=== PATIENT | female | born 1970 | race Caucasian/White ===

== ENCOUNTER 2020-03-29 07:41 | Outpatient (CLI) | payer OTHER, SELFPAY ==
--- NOTE | 2020-03-29 08:00 | MM_ITS ---
WS: [id number] BILATERAL DIGITAL SCREENING MAMMOGRAPHY WITH CAD CLINICAL INFORMATION: screening HISTORY: Screening mammogram. No current complaints. COMPARISON: TECHNIQUE: Bilateral CC and MLO views. FINDINGS: Scattered fibroglandular densities bilaterally. No suspicious focal mass, asymmetry, calcifications, or architectural distortion. No evidence of malignancy. MM/[id number] IMPRESSION: BI-RADS: 1-Negative FOLLOW UP: 1 Year Follow-up Recommend return to annual screening mammography.
== END 2020-03-29 07:42 | disposition home or self-care (01) ==
LOC: RADSHAW 07:43
PROVIDERS: PCP Electrodiagnostic Medicine; Visit Provider Nurse Practitioner Women's Health
DX: Z12.31 Encounter for screening mammogram for malignant neoplasm of breast (principal)
CPT/HCPCS: 77067

== ENCOUNTER 2021-04-04 07:59 | Outpatient (CLI) | payer OTHER, SELFPAY ==
--- NOTE | 2021-04-04 08:00 | MM_ITS ---
WS: [id number] Bilateral screening digital mammogram, 04/04/2021 Clinical Data: Z12.39 - Encounter for other screening for malignant neop... Comparison: 03/29/2020, 07/19/2015, 06/02/2013. Findings: The breast parenchymal pattern shows fat replacement. No spiculated masses or clustered calcification s are seen. There are no secondary signs of carcinoma. There are lymph nodes in both axilla. MM/[place] [id number] Impression: 1. Negative bilateral mammogram unchanged. 2. Recommend annual screening mammograms. BIRADS: 1-Negative FOLLOW UP: 1 Year Follow-up The CAD mechanical and auto body car checker was used.
== END 2021-04-04 08:00 | disposition home or self-care (01) ==
LOC: RADSHAW 08:01
PROVIDERS: PCP Electrodiagnostic Medicine; Visit Provider Nurse Practitioner Women's Health
DX: Z12.31 Encounter for screening mammogram for malignant neoplasm of breast (principal)
CPT/HCPCS: 77067

== ENCOUNTER → 2022-05-06 09:15 | Outpatient (BNVA) | payer OTHER, SELFPAY | PROVIDERS: Visit Provider Nurse Practitioner Women's Health | DX: Z01.419 Encounter for gynecological examination (general) (routine) without abnormal findings (principal); E28.2 Polycystic ovarian syndrome | CPT/HCPCS: 87624 ==

== ENCOUNTER 2022-05-15 09:04 | Outpatient (CLI) | payer OTHER, SELFPAY ==
--- NOTE | 2022-05-15 09:10 | MM_ITS ---
WS: [id number] SCREENING DIGITAL TOMOSYNTHESIS MAMMOGRAM WITH CAD HISTORY: Z12.39 - Encounter for other screening for malignant neoplasm... COMPARISON: 04/04/2021 and 03/29/2020 Bilateral CC and MLO with tomosynthesis views submitted. Synthetic mammography reviewed. Computer aid ed detection analyzed. Breast composition: There are scattered areas of fibroglandular density. No suspicious masses, microc alcifications or architectural distortion. MM/[place] [id number] IMPRESSION: BI-RADS: 1-Negative FOLLOW UP: 1 Year Follow-up
== END 2022-05-15 09:05 | disposition home or self-care (01) ==
LOC: RAD 09:06
PROVIDERS: Visit Provider Nurse Practitioner Women's Health
DX: Z12.31 Encounter for screening mammogram for malignant neoplasm of breast (principal)
CPT/HCPCS: 77063; 77067

== ENCOUNTER → 2022-07-24 12:15 | Outpatient (BNVA) | payer OTHER, SELFPAY | PROVIDERS: Visit Provider Nurse Practitioner Women's Health | DX: R87.615 Unsatisfactory cytologic smear of cervix (principal) | CPT/HCPCS: 87624 ==

== ENCOUNTER 2023-03-18 08:24 | Emergency (ER) | payer OTHER, SELFPAY ==
[2023-03-18 08:32] VITALS: BP 236/149; PULSE 104; RESP 18; TEMP 36.9; O2SAT 96; BMI 54.8
[2023-03-18 08:37] VITALS: BP 238/120
--- NOTE | 2023-03-18 08:42 | ECG_ITS ---
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 Measurements Intervals [place] Rate: 90 P: 34 TN: 191 QRS: 7 QRSD: 90 T: 69 QT: 369 QTc: 453 Interpretive Statements SINUS RHYTHM WITH OCCASIONAL VENTRICULAR PREMATURE COMPLEXES POSSIBLE LEFT ATRIAL ENLARGEMENT [-0.1mV P-WAVE IN V1/V2] ANTERIOR MYOCARDIAL INFARCTION , OF INDETERMINATE AGE [40+ ms Q WAVE AND/OR ST/T ABNORMALITY IN V3/V4] No previous ECG available for comparison Electronically Signed On 03-18-2023 11:00:26 CDT by Lisa Garcia M.D. [id number]
--- NOTE | 2023-03-18 08:42 | XR_ITS ---
WS: [id number] Exam: XR chest 1V portable [id number] Date/Time of Exam: 03/18/2023 8:42 AM Reason For Exam: dyspnea/cough No priors. Findings: The lungs are clear and fully expanded. Costophrenic angles are sharp. No infiltrates. Bronchovascula r relief appears normal. Cardiac silhouette is unremarkable. Bony elements are intact. XR/XR chest 1V portable [id number] IMPRESSION: Unremarkable chest radiograph.
[2023-03-18 09:02] LABS: Basophils # 0.1 10^3/uL (0.0-0.1); Basophils % 0.8 %; Eosinophils # 0.3 10^3/uL (0.0-0.8); Eosinophils % 3.4 %; Hematocrit 38.6 % (37.0-47.0); Hemoglobin 12.1 g/dL (11.5-15.3); Lymphocytes # 1.9 10^3/uL (0.8-4.8); Lymphocytes % 25.2 %; Mean Corpuscular HGB Conc 31.3 g/dL (30.0-36.0); Mean Corpuscular Hemoglobin 26.4 pg (28.0-34.0); Mean Corpuscular Volume 84.1 fl (81-99); Mean Platelet Volume 9.6 fL (7.4-10.4); Monocytes # 0.5 10^3/uL (0.2-0.9); Neutrophils # 4.69 10^3/uL (1.8-7.7); Neutrophils % 63.2 %; Nucleated Red Blood Cells % 0 %; Platelet Count 377 10^3/cmm (130-400); Red Blood Count 4.59 10^6/uL (4.1-5.3); Red Cell Distribution Width 15.3 % (12.1-15.1); White Blood Count 7.4 10^3/uL (4.0-10.0)
[2023-03-18] MEDS: metoprolol tartrate 25 mg Tablet PO (09:02)
[2023-03-18] MEDS: amlodipine 10 mg Tablet PO (09:02)
[2023-03-18] MEDS: labetalol 5 mg/mL SDV 20mL 10 MG IVP (09:04)
[2023-03-18] MEDS: hyDRALAzine 20 mg/mL INJ 1 mL IVP (09:04)
[2023-03-18 09:07] VITALS: BP 163/83; PULSE 72; O2SAT 98
--- NOTE | 2023-03-18 09:19 | W.ED.DIZZY ---
HPI - Dizziness General: Chief Complaint: Dizziness Stated Complaint: bp issues Time Seen by Provider: 03/18/23 08:28 Source: patient Mode of arrival: ambulatory History of Present Illness: HPI Narrative: 52-year-old female with a history of hypertension was recently seen and started on lisinopril 20 mg daily and clonidine 0.1 twice daily despite this her blood pressure continues to be elevated and was significantly elevated on arrival today at home she did several blood pressures well over 200 and did when she first arrived here verified by manual cuff she denies difficulty speech swallowing or vision gait or coordination. MD elicited complaint: dizziness Onset (ago): day(s) Severity: moderate Description: sense of movement Context: change in medication Exacerbating factors: nothing Relieving factors: nothing Associated symptoms: Denies chest pain, chills, malaise or nasal congestion Associated neuro symptoms: Deny confusion, difficulty speaking, dysphagia, diplopia, extremity weakness, facial numbness, facial weakness, gait changes, numbness in extremities or visual changes Review of Systems Const: Denies: fever(s), chills, body aches, change in appetite, fatigue or malaise ENMT: Denies: throat pain, ear or mastoid pain, nasal discharge or nasal congestion Card: Denies: chest pain, edema, dyspnea on exertion or orthopnea Resp: Denies: dyspnea, productive cough or non-productive cough GI: Denies: dysphagia : Denies: flank pain, difficulty voiding, dysuria, urinary frequency or urinary urgency Skin/Breast: Denies: rash or pruritus Neuro: Denies: numbness in extremities or confusion PFSH ED PFSH: Medical History No pertinent past medical history neghx: htn,dm,thyroid,dvt/pe PCP: Nolan Polycystic ovarian syndrome Surgical History H/O knee surgery (~09/2016) Performed by Dr. Pena at [facility] in [place], [place]. H/O removal of cyst Dr. Contreras---left shoulder Family History Mother Family history of thyroid problem Hypertension Father Heart disease Denies family history of Colon cancer Ovarian cancer Diabetes Hyperlipidemia Breast cancer Uterine cancer Stroke Social History Smoking and tobacco status: never smoked Substance/Drug Use: never Physical Exam Const: GENERAL APPEARANCE: cooperative and comfortable ORIENTATION/CONSCIOUSNESS: Yes awake, Yes oriented to person, Yes oriented to place and Yes oriented to time HENMT: COMMON NORMALS: normocephalic, atraumatic and hearing grossly normal bilaterally HEAD & SCALP: normocephalic and atraumatic Resp: COMMON NORMALS: normal respiratory effort, No retractions, No use of accessory muscles and clear to auscultation bilaterally AUSCULTATION: clear to auscultation bilaterally Cardio: COMMON NORMALS: regular rate, regular rhythm and No murmurs present (Cardio) RATE: regular rate RHYTHM: regular rhythm GI: COMMON NORMALS: Soft to palpation and No hepatosplenomegaly present AUSCULTATION: Yes normoactive bowel sounds PALPATION: Yes Soft to palpation, No Tenderness to palpation present (GI), No Guarding due to palpation present (GI) and Yes No hepatosplenomegaly present Extremity: COMMON NORMALS: normal to inspection, capillary refill normal, no clubbing, cyanosis or edema, no calf tenderness and no pedal edema Neuro: SENSORIUM/ORIENTATION: Yes oriented to person, Yes oriented to place and Yes oriented to time OTHER: No focal neurologic deficits are noted. Screening neurologic exam negative cranial nerves II to XII grossly intact. No pronator drift no leg weakness no ataxia no slurring of the speech no visual deficits. Facial muscle strength is symmetrical Skin: COMMON NORMALS: no rashes or lesions noted GENERAL SKIN EXAM: no rashes or lesions noted Course Vital Signs: Vital signs: Vital Signs Temperature 98.5 F 03/18/23 08:32 Pulse Rate 72 03/18/23 09:07 Respiratory Rate 18 03/18/23 08:32 Blood Pressure 170/90 03/18/23 10:27 Pulse Oximetry 98 03/18/23 09:07 MDM - Dizziness Medical Decision Making Patient responded well to medications given her blood pressure improved significantly we will discharge her home on Toprol-XL 25 p.o. daily increase lisinopril to 20 twice daily. I think she is getting some rebound hypertension from the clonidine we will have her stop that and add amlodipine 10 mg daily. She is already received metoprolol and amlodipine in the emergency room and taken her lisinopril this morning. Tonight she should take her lisinopril and her Toprol-XL she can start tomorrow regularly taking the amlodipine. She should monitor blood pressures once to twice a day and reevaluate to them with her primary care doctor next week to review her blood pressures and the efficacy of the medication changes made. Given her good response to beta-ernesto with her heart rate I do not think she has a pheochromocytoma, her creatinine did not increase significantly with starting lisinopril does not think she has renal artery stenosis. Most likely this is just accelerated essential hypertension. She is symptom-free and her blood pressure is much improved now can continue to be treated as an outpatient. Differential Diagnosis Likely adverse reaction to drug and cerebrovascular accident Medical Records I reviewed the patient's medical records. Lab Data I reviewed the patient's lab results. 03/18/23 08:45 03/18/23 08:45 Radiology Impressions Chest X-Ray 03/18/23 08:42 IMPRESSION: Unremarkable chest radiograph. Laboratory Results WBC 7.4 10^3/uL (4.0-10.0) 03/18/23 08:45 RBC 4.59 10^6/uL (4.1-5.3) 03/18/23 08:45 Hgb 12.1 g/dL (11.5-15.3) 03/18/23 08:45 Hct 38.6 % (37.0-47.0) 03/18/23 08:45 MCV 84.1 fl (81-99) 03/18/23 08:45 MCH 26.4 pg (28.0-34.0) L 03/18/23 08:45 MCHC 31.3 g/dL (30.0-36.0) 03/18/23 08:45 RDW 15.3 % (12.1-15.1) H 03/18/23 08:45 Plt Count 377 10^3/cmm (130-400) 03/18/23 08:45 MPV 9.6 fL (7.4-10.4) 03/18/23 08:45 Neut % (Auto) 63.2 % 03/18/23 08:45 Lymph % (Auto) 25.2 % 03/18/23 08:45 [place] % (Auto) 7.0 % 03/18/23 08:45 Eos % (Auto) 3.4 % 03/18/23 08:45 Baso % (Auto) 0.8 % 03/18/23 08:45 Neut # (Auto) 4.69 10^3/uL (1.8-7.7) 03/18/23 08:45 Lymph # (Auto) 1.9 10^3/uL (0.8-4.8) 03/18/23 08:45 [place] # (Auto) 0.5 10^3/uL (0.2-0.9) 03/18/23 08:45 Eos # (Auto) 0.3 10^3/uL (0.0-0.8) 03/18/23 08:45 Baso # (Auto) 0.1 10^3/uL (0.0-0.1) 03/18/23 08:45 Nucleated RBC % (auto) 0 % 03/18/23 08:45 Nucleated RBCs # 0.0 /100WBC 03/18/23 08:45 Sodium 139 mmol/L (136-145) 03/18/23 08:45 Potassium 4.1 mmol/L (3.5-5.1) 03/18/23 08:45 Chloride 101 mmol/L (98-107) 03/18/23 08:45 Carbon Dioxide 23 mmol/L (22-29) 03/18/23 08:45 Anion Gap 19.1 (5-19) H 03/18/23 08:45 BUN 13 mg/dL (6-20) 03/18/23 08:45 Creatinine 0.8 mg/dL (0.5-0.9) 03/18/23 08:45 GFR Calculation 75.6 mL/min (90-130) L 03/18/23 08:45 Glucose 119 mg/dL (65-115) H 03/18/23 08:45 Calculated Osmolality 289 mOsm/kg (285-295) 03/18/23 08:45 Calcium 10.0 mg/dL (8.5-10.5) 03/18/23 08:45 Total Bilirubin 0.4 mg/dL (0.15-1.2) 03/18/23 08:45 AST 45 U/L (0-32) H 03/18/23 08:45 ALT 51 U/L (0-33) H 03/18/23 08:45 Alkaline Phosphatase 90 U/L (35-105) 03/18/23 08:45 Total Protein 8.3 g/dL (6.6-8.7) 03/18/23 08:45 Albumin 4.6 g/dL (3.5-5.2) 03/18/23 08:45 Globulin 3.7 g/dL (1.3-4.6) 03/18/23 08:45 Urine Color Light yellow (Yellow) 03/18/23 Unknown Urine Appearance Clear (CLEAR) 03/18/23 Unknown Urine pH 5 (5-7) 03/18/23 Unknown Ur Specific [place] 1.010 (1.005-1.030) 03/18/23 Unknown Urine Protein Neg (Negative) 03/18/23 Unknown Urine Glucose (UA) Norm (Normal) 03/18/23 Unknown Urine Ketones Negative (Negative) 03/18/23 Unknown Urine Blood Neg (Negative) 03/18/23 Unknown Urine Nitrate Negative (Negative) 03/18/23 Unknown Urine Bilirubin Neg (Negative) 03/18/23 Unknown Urine Urobilinogen Norm mg/dL (Negative) 03/18/23 Unknown Ur Leukocyte Esterase Negative (Negative) 03/18/23 Unknown Discharge Plan Discharge Patient Disposition: Home Clinical Impression: HTN (hypertension) Condition: Stable Prescriptions: New amlodipine 10 mg tablet 10 mg PO DAILY Qty: 30 0RF Toprol XL 25 mg tablet extended release 24 hr 25 mg PO DAILY Qty: 30 0RF lisinopril 20 mg tablet 20 mg PO BID Qty: 60 0RF No Action acetaminophen [Tylenol Arthritis Pain] 650 mg tablet extended release 650 mg PO Q12H metformin 850 mg tablet 850 mg PO BID Qty: 60 11RF Discharge Orders: Discharge ED (Routine); Ordered 03/18/23 Ordered By: Jay Gaffney Referrals: Michi Francisco DO [Primary Care Provider] - Discharge Diet: Usual diet Discharge Activity: Increase activity as tolerated Patient Instructions: Opioid Safety, Pain Management Activity Restrictions/Additional Instructions: Monitor blood pressure 1-2 times a day at home. Rest 15 to 20 minutes before checking your blood pressure. Stop using the clonidine. Increase your lisinopril to 20 mg daily start metoprolol 25 mg daily and amlodipine 10 mg daily. Follow-up with your primary care doctor in 4 to 5 days to recheck blood pressure and review blood pressure logs. 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
[2023-03-18 09:25] LABS: Alanine Aminotransferase 51 U/L (0-33); Albumin Level 4.6 g/dL (3.5-5.2); Alkaline Phosphatase 90 U/L (35-105); Anion Gap 19.1 (5-19); Aspartate Amino Transferase 45 U/L (0-32); Blood Urea Nitrogen 13 mg/dL (6-20); Carbon Dioxide 23 mmol/L (22-29); Chloride 101 mmol/L (98-107); Globulin 3.7 g/dL (1.3-4.6); Glomerular Filtration Rate 75.6 mL/min (90-130); Glucose 119 mg/dL (65-115); Osmolality Calculated 289 mOsm/kg (285-295); Potassium 4.1 mmol/L (3.5-5.1); Sodium 139 mmol/L (136-145); Total Bilirubin 0.4 mg/dL (0.15-1.2); Total Protein 8.3 g/dL (6.6-8.7)
[2023-03-18 10:18] LABS: Add Urine Microscopic? NO; Charge for UA Resulting for Rev
[2023-03-18 10:27] VITALS: BP 170/90
[2023-03-18 10:34] LABS: Bilirubin Urine Neg (Negative); Blood Urine Neg (Negative); Glucose Urine UA Norm (Normal); Ketones Urine Negative (Negative); Leukocyte Esterase Urine Negative (Negative); Nitrate Urine Negative (Negative); Protein Urine Neg (Negative); Urine Appearance Clear (CLEAR); Urine Color Light yellow (Yellow); Urobilinogen Urine Norm (Negative); pH Urine 5 (5-7)
== END 2023-03-18 10:28 | disposition home or self-care (01) ==
PROVIDERS: Emergency Provider Family Medicine; PCP Electrodiagnostic Medicine
DX: I10 Essential (primary) hypertension (principal); Z79.84 Long term (current) use of oral hypoglycemic drugs
CPT/HCPCS: 71045; 80053; 81003; 85025; 93005; 96374; 96375; 99285; J0360; J3490

== ENCOUNTER 2023-04-01 10:40 | Outpatient (CLI) | payer OTHER, SELFPAY ==
--- NOTE | 2023-04-01 | ECG_ITS ---
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 Interpretive Statements NAME OF STUDY: TREADMILL STRESS TEST INDICATION: Chest Pain, SOB Baseline blood pressure of 168/98 mm Hg, heart rate 93 beats per minute and oxygen saturation of 98%. EKG showed sinus tachycardia with frequent isolated PVCs. Normal axis. Possible old anterior infarct. The patient exercised for 3 minutes 25 seconds on a standard Fabian protocol. Patient attained a maximum heart rate of 157 beats per minute(92% of the maximum predicted heart rate) with a blood pressure at the peak exercise of 234/118 mm Hg. The EKG at the peak exercise revealed sinus tachycardia with no significant ST-T wave changes. Patient did not have any chest pain or any significant arrhythmis with the exercise. During the recovery phase, there were no new changes. Blood pressure at the end of the recovery phase was 123/94 mm Hg with a heart rate of 102 beats per minute. Frequent isolated PVCs noted in recovery. CONCLUSION: 1. Normal EKG response to treadmill exercise. 2. No exercise-induced chest pain or cardiac arrhythmia. 3. Decreased exercise tolerance, attained a maximum of 7 METs. 4. Baseline hypertension with hypertensive response to exercise. Electronically Signed On 04-01-2023 16:06:38 CDT by Lisa Garcia M.D. [id number]
[2023-04-01 10:54] VITALS: BMI 54.8
--- NOTE | 2023-04-01 11:15 | PC.NURSE ---
BP Pre stress test BP 185/96. Dr. Garcia notified via phone. Pt reports taking amlodipine 10mg and 20mg Lisinopril this am. Has held 100mg metoprolol ER for 48hrs. Received verbal orders to give additional 20mg lisinopril PO now and repeat BP in 30-45 minutes . If SBP <180 may proceed with stress test.
[2023-04-01] MEDS: lisinopril 20 mg Tablet PO (11:19)
--- NOTE | 2023-04-01 11:50 | PC.NURSE ---
Repeat BP after administration of medication 168/98. Proceeding with stress test at this time.
[2023-04-01 12:24] VITALS: BP 123/94; PULSE 102
== END 2023-04-01 10:41 | disposition home or self-care (01) ==
LOC: CDL 10:41
PROVIDERS: PCP Electrodiagnostic Medicine; Visit Provider Electrodiagnostic Medicine
DX: R07.9 Chest pain, unspecified (principal); I10 Essential (primary) hypertension
CPT/HCPCS: 93017

== ENCOUNTER → 2023-06-04 12:10 | Outpatient (BNVA) | payer OTHER, SELFPAY | PROVIDERS: Visit Provider Nurse Practitioner Women's Health | DX: R87.610 Atypical squamous cells of undetermined significance on cytologic smear of cervix (ASC-US) (principal) | CPT/HCPCS: 87624 ==

== ENCOUNTER 2023-06-25 08:16 | Outpatient (CLI) | payer OTHER, SELFPAY ==
--- NOTE | 2023-06-25 08:26 | MM_ITS ---
WS: [id number] BILATERAL SCREENING DIGITAL TOMOSYNTHESIS MAMMOGRAM WITH CAD HISTORY: Z12.31 - Encounter for screening mammogram for malignant ... COMPARISON: 05/15/2022 and 04/04/2021 Bilateral CC and MLO views with tomosynthesis and synthetic mammography submitted. Computer aided det ection analyzed. Breast composition: The breasts are almost entirely fatty. No suspicious masses, microcalcifications or architectural distortion. IMPRESSION: MM/[place] [id number] BI-RADS: 1-Negative FOLLOW UP: 1 Year Follow-up
== END 2023-06-25 08:17 | disposition home or self-care (01) ==
LOC: RAD 08:17
PROVIDERS: PCP Electrodiagnostic Medicine; Visit Provider Nurse Practitioner Women's Health
DX: Z12.31 Encounter for screening mammogram for malignant neoplasm of breast (principal)
CPT/HCPCS: 77063; 77067

== ENCOUNTER 2024-08-11 07:48 | Outpatient (CLI) | payer OTHER, SELFPAY ==
--- NOTE | 2024-08-11 07:50 | MM_ITS ---
WS: [id number] VIEWS: MLO and CC views both breasts. 3D digital tomosynthesis is also included in this exam. Comparison made with prior exam of 03/29/2020, 04/04/2021, 05/15/2022, 06/25/2023.. Findings: The breasts are almost entirely fatty. No mass, tumor calcification or architectural distortion in either breast. MM/MM scr BI tomosynthesis [id number] Impression: BI-RADS: 1 - Negative. FOLLOW-UP: 1 Year Follow-up This mammogram was also analyzed by the Computer Aided Detection System R2 Imag e Dairy Cattle Farm Worker.
== END 2024-08-11 07:49 | disposition home or self-care (01) ==
LOC: RAD 07:48
PROVIDERS: PCP Electrodiagnostic Medicine; Visit Provider Nurse Practitioner Women's Health
DX: Z12.31 Encounter for screening mammogram for malignant neoplasm of breast (principal); R92.313 Mammographic fatty tissue density, bilateral breasts
CPT/HCPCS: 77063; 77067

== ENCOUNTER → 2024-10-13 12:47 | Outpatient (BNVA) | payer OTHER, SELFPAY | PROVIDERS: PCP Electrodiagnostic Medicine; Visit Provider Nurse Practitioner Women's Health | DX: Z13.21 Encounter for screening for nutritional disorder (principal); Z01.419 Encounter for gynecological examination (general) (routine) without abnormal findings; R87.610 Atypical squamous cells of undetermined significance on cytologic smear of cervix (ASC-US); E28.2 Polycystic ovarian syndrome; N95.1 Menopausal and female climacteric states | CPT/HCPCS: 82306 ==

== ENCOUNTER 2025-08-31 11:15 | Outpatient (CLI) | payer OTHER, SELFPAY ==
--- NOTE | 2025-08-31 11:19 | MM_ITS ---
WS: [id number] BILATERAL SCREENING DIGITAL TOMOSYNTHESIS MAMMOGRAM WITH CAD HISTORY: SCREENING COMPARISON: 08/11/2024, 06/25/2023 Bilateral CC and MLO views with tomosynthesis and synthetic mammography submitted. Computer aided detection analyzed. Breast composition: The breasts are almost entirely fatty. No suspicious masses, microcalcifications or architectural distortion. Benign calcifications RIGHT breast. MM/MM scr BI tomosynthesis [id number] IMPRESSION: BI-RADS: 2 - Benign. FOLLOW UP: 1 Year Follow-up
== END 2025-08-31 11:16 | disposition home or self-care (01) ==
LOC: RAD 11:16
PROVIDERS: PCP Electrodiagnostic Medicine; Visit Provider Nurse Practitioner Women's Health
DX: Z12.31 Encounter for screening mammogram for malignant neoplasm of breast (principal); R92.313 Mammographic fatty tissue density, bilateral breasts; R92.1 Mammographic calcification found on diagnostic imaging of breast
CPT/HCPCS: 77063; 77067